=== PATIENT | female | born 1965 | race Hispanic/Latino ===

== ENCOUNTER 2021-10-19 18:27 | Emergency (ER) | payer BC ==
[2021-10-19] MEDS ORDERED: Ibuprofen 800 MG TAB ONE (18:43)
== END 2021-10-19 19:47 | disposition home or self-care (01) ==
LOC: BURERS 18:27
DX: S60.465A Insect bite (nonvenomous) of left ring finger, initial encounter (principal); W57.XXXA Bitten or stung by nonvenomous insect and other nonvenomous arthropods, initial encounter; E11.9 Type 2 diabetes mellitus without complications; E03.9 Hypothyroidism, unspecified
CPT/HCPCS: 99281

== ENCOUNTER 2022-05-20 15:22 | Emergency (ER) | payer BC ==
[2022-05-20] MEDS ORDERED: Iopamidol 370 76% 100 ML VIAL FS ONE (15:23)
[2022-05-20] MEDS ORDERED: Fentanyl 100 MCG/2 ML VIAL ONE (16:15)
[2022-05-20] MEDS ORDERED: Ondansetron PF 4 MG/2 ML Vial ONE (16:15)
[2022-05-20 16:17] LABS: #Basophils 0.1 thou/uL (0.0-0.2); #Eosinphils 0.3 thou/uL (0.0-0.7); #Lymphocytes 3.6 thou/uL (1.20-3.40); #Monocytes 0.7 thou/uL (0.11-0.59); #Neutrophils 7.5 thou/uL (1.40-6.50); %Basophils 0.9 % (0.0-1.0); %Eosinophils 2.6 % (0.0-10.0); %Lymphocytes 29.7 % (21.0-51.0); %Monocytes 5.6 % (0.0-10.0); %Neutrophils 61.2 % (42.0-75.0); Hemoglobin 13.8 g/dL (12.0-16.0); Mean Corpuscular HGB CONC 32.5 g/dL (32.0-36.0); Mean Corpuscular Hemoglobin 28.4 pg (27.0-31.0); Mean Corpuscular Volume 87.3 fL (78.0-98.0); Mean Platelet Volume 8.9 fL (7.4-10.4); Platelet Count 282 thou/uL (130-400); RBC Distribution Width 13.3 % (11.5-14.5); Red Blood Cell (RBC) Count 4.85 mill/uL (4.20-5.40); White Blood Cell (WBC) Count 12.2 thou/uL (4.8-10.8)
[2022-05-20 16:30] LABS: ALT (SGPT) 78 U/L (8-55); AST (SGOT) 123 U/L (5-34); Albumin 4.3 g/dL (3.5-5.0); Alkaline Phosphatase 108 U/L (40-110); Anion Gap 16 mmol/L (10-20); BUN (Urea Nitrogen) 12 mg/dL (9.8-20.1); Bilirubin, Total 0.8 mg/dL (0.2-1.2); Calc. Creatinine Clearance 0 mL/min (70-130); Calcium 9.2 mg/dL (7.8-10.44); Carbon Dioxide 23 mmol/L (22-29); Chloride 105 mmol/L (98-107); Estimated GFR 82; Globulin 3.3 g/dL (2.4-3.5); Glucose 162 mg/dL (70-105); Lipase 43 U/L (8-78); Potassium 3.9 mmol/L (3.5-5.1); Protein, Total 7.6 g/dL (6.0-8.3); Sodium 140 mmol/L (136-145)
[2022-05-20 17:17] LABS: Bilirubin Negative (Negative); Blood, Urine Negative (Negative); Clarity Clear (Clear); Glucose, Urine (Dipstick) Negative (Negative); Ketone, Urine Negative (Negative); Leukocyte Negative (Negative); Nitrite Negative (Negative); Protein, Urine (Dipstick) Negative (Neg-Trace)
[2022-05-20] MEDS ORDERED: Dicyclomine 20 MG/2 ML VIAL ONE (17:39)
[2022-05-20] MEDS ORDERED: Pantoprazole 40 MG VIAL ONE (17:39)
[2022-05-20] MEDS ORDERED: HYDROmorphone 0.5 MG/0.5 ML SYRINGE ONE (18:15)
[2022-05-20] MEDS ORDERED: Piperacillin/Tazobactam 4.5 GM VIAL ONE (18:15)
== END 2022-05-20 18:26 | disposition short-term general hospital (02) ==
LOC: BURERS 15:22
DX: K80.71 Calculus of gallbladder and bile duct without cholecystitis with obstruction (principal); E11.9 Type 2 diabetes mellitus without complications; E03.9 Hypothyroidism, unspecified; E78.5 Hyperlipidemia, unspecified
CPT/HCPCS: 36415; 74177; 80053; 81003; 83690; 84484; 85025; 93005; 96361; 96372; 96374; 96375; C9113; J1170; J2405; J2543; J3010; Q9967